=== PATIENT | female | born 1980 | race Caucasian/White ===

== ENCOUNTER 2023-02-09 08:22 | Emergency (ER) | payer MEDICAID, OTHER ==
[~2023-02-09] VITALS: Ht 157.5 cm; Wt 94.8 kg
--- NOTE | 2023-02-09 08:30 | NUR ---
RECEIVED PT 42 YRS FEMALE WITH [employer] ON [employer] FOR MEDICLE CLEAR AND O.K TO BOOK
--- NOTE | 2023-02-09 08:35 | NUR ---
[employer]ER [employer] [id number] AND OFFICER LELO [id number] # [phone]
[2023-02-09] MEDS ORDERED: FLUORESCEIN SODIUM OPHTH 1 EA STRIP ONE (08:36)
--- NOTE | 2023-02-09 08:45 | NUR ---
SEEN BY DR. DEJESUS
[2023-02-09] MEDS ORDERED: IBUPROFEN 600 MG TABLET ONE (08:55)
[2023-02-09] MEDS ORDERED: IBUPROFEN 600 MG TABLET PO ONE (09:00)
--- NOTE | 2023-02-09 09:07 | NUR ---
D/C WITH [employer] AND OK TO BOOK
[2023-02-09 09:08] VITALS: BP 140/77
== END 2023-02-09 09:10 ==
LOC: ER 08:33
DX: S09.90XA Unspecified injury of head, initial encounter (principal); I10 Essential (primary) hypertension; F41.9 Anxiety disorder, unspecified; Y08.89XA Assault by other specified means, initial encounter; Y93.89 Activity, other specified; Y92.89 Other specified places as the place of occurrence of the external cause; Y99.8 Other external cause status